=== PATIENT | female | born 1950 | race Caucasian/White ===

== ENCOUNTER → 2024-02-22 11:58 | Outpatient (REF) | payer MEDICARE, OTHER, SELFPAY | LOC: WDC 11:58 | PROVIDERS: ATTENDING PHYSICIAN Obstetrics & Gynecology; FAMILY PHYSICIAN Internal Medicine | DX: Z12.31 Encounter for screening mammogram for malignant neoplasm of breast (principal) | CPT/HCPCS: 77063; 77067 ==

== ENCOUNTER → 2024-04-25 09:13 | Outpatient (REF) | payer MEDICARE, OTHER, SELFPAY | LOC: RAD 09:13 | PROVIDERS: ATTENDING PHYSICIAN Internal Medicine Rheumatology; FAMILY PHYSICIAN Internal Medicine | DX: M81.0 Age-related osteoporosis without current pathological fracture (principal); Z13.820 Encounter for screening for osteoporosis | CPT/HCPCS: 77080 ==

== ENCOUNTER → 2024-07-21 13:00 | Outpatient (REF) | payer MEDICARE, OTHER, SELFPAY | LOC: RAD 13:00 | PROVIDERS: ATTENDING PHYSICIAN Obstetrics & Gynecology; FAMILY PHYSICIAN Internal Medicine | DX: R10.2 Pelvic and perineal pain (principal) | CPT/HCPCS: 76830; 76856 ==

== ENCOUNTER 2024-09-20 06:20 | Day surgery (SDC) | payer MEDICARE, OTHER, SELFPAY | END 2024-09-20 15:09 | disposition home or self-care (01) | LOC: GI 06:20 | PROVIDERS: ATTENDING PHYSICIAN Internal Medicine Gastroenterology | DX: Z12.11 Encounter for screening for malignant neoplasm of colon (principal); K57.30 Diverticulosis of large intestine without perforation or abscess without bleeding; Z86.0101 Personal history of adenomatous and serrated colon polyps | CPT/HCPCS: G0105 ==

== ENCOUNTER 2024-09-27 06:55 | Emergency (ER) | payer MEDICARE, OTHER, SELFPAY ==
[2024-09-27 06:57] VITALS: BP 149/94
[2024-09-27 07:34] VITALS: BP 129/72
[2024-09-27 07:35] VITALS: BMI 26.2
[2024-09-27 08:00] VITALS: BP 127/70
--- NOTE | 2024-09-27 08:56 | ED.GENMED ---
History of Present Illness
General
Chief Complaint: Headache
Source: patient
Exam Limitations: none
Time Seen by Provider: 09/27/24 07:04
Nursing documentation reviewed up to this point in time: agreed with
History of Present Illness
History of Present Illness:
74-year-old female with no reported chronic medical issues presents to the emergency room for evaluation of headaches. Patient reports that she had a fall on Wednesday (5 days ago)�she was apparently sitting on her porch step holding her dog and a dog
went to [place] an animal and pulled her into the railing of the step. She struck her head but did not lose consciousness. She has had some soreness in her neck and headaches since. She went to see her primary doctor initially and was diagnosed
with concussion but told to go to the emergency room for CT if symptoms persist or worsen. She says that over the weekend symptoms have been a bit worse and so she decided to come in for evaluation. She has not had any vomiting. Denies any change
in her vision or speech, focal weakness or numbness in extremities. She denies any other injuries. Her only other complaint is she said she has had a little bit higher than usual blood pressure over the past few days and will occasionally get
palpitations.
Review of Systems
Review of Systems
All Other Systems: ROS reviewed and negative except as documented in HPI and ROS
Respiratory: Denies trouble breathing
Cardiac: Reports palpitations; Denies chest pain
ABD/GI: Denies abdominal pain, nausea or vomiting
Musculoskeletal: Reports neck pain; Denies back pain
Neurological: Reports headache; Denies dizzy, weakness or numbness
Phy Exam
Physical Exam
Physical Exam:
General: Awake, alert, oriented x3; no acute distress
Head: Normocephalic, some bruising on the forehead and minor abrasion
Eyes: Conjunctiva normal, EOMI, pupils equal round and reactive to light bilaterally
Throat: Airway intact, handling secretions
Neck: Trachea midline no midline cervical spine tenderness, good range of motion to [address] without pain, some mild tenderness of the upper trapezius
Lungs: Clear to auscultation bilaterally, no wheezing, rales, rhonchi
Heart: Regular rate and rhythm, no murmurs, gallops, or rubs
Neuro: Cranial nerves intact 2 through 12, speech fluid without dysarthria or aphasia, no limb ataxia, motor and sensory intact, normal Romberg
Extremities: Atraumatic, warm and well-perfused
Scores
Heart Failure Risk
Heart Failure Risk Score: Not Applicable
Heart Score for Chest Pain Patients
STEMI patient?: Not applicable
Withdrawal Assessment of Alcohol
Withdrawal Assessment Completed?: Not applicable
Course
Orders/Labs/Results
Orders:
Orders
09/27/24 07:04
CT Head W/o Iv Contrast Urgent
Comment:
Reason For Exam: headache s/p fall with head strike
09/27/24 07:05
CT Cervical Spine W/o Iv Contr Urgent
Comment:
Reason For Exam: headache s/p fall with head strike
09/27/24 07:13
Electrocardiogram (*1) Urgent
Reason for Study: Palpitations
EKG- Treatment ONCE
Vital Signs
Pulse: 73
Initial and Last Documented VS:
Initial Vital Signs
Temp Pulse Resp BP Pulse Ox
36.9 C 105 18 149/94 99
09/27/24 06:57 09/27/24 06:57 09/27/24 06:57 09/27/24 06:57 09/27/24 06:57
Last Documented Vital Signs
Temp Pulse Resp BP Pulse Ox
36.9 C 105 18 127/70 98
09/27/24 06:57 09/27/24 06:57 09/27/24 06:57 09/27/24 08:00 09/27/24 08:01
MDM/Problems Addressed
Differential Diagnosis Includes:
Concussion, subdural/subarachnoid hemorrhage, tension headache, cervical spine injury
MDM/Problems Addressed:
74-year-old female presents 5 days status post head trauma complaining of continued headache and some soreness in the neck. Vitals and exam as above�she did have some tachycardia and hypertension in triage which normalized by my assessment. CT
head and cervical spine performed here showed no acute abnormalities, age-related degenerative changes. Provided copy of her report for her to follow-up with her primary doctor. She did complain of some higher than usual blood pressure and
occasional palpitations and so we checked an EKG which showed normal sinus rhythm with no ectopy, no acute ischemic changes. Stable for discharge to follow-up with primary care physician�likely diagnosis of concussion. Spoke about return
precautions all questions answered.
Acute Exacerbation and/or Progression of Chronic Illness:
Acutely hypertensive resolved without intervention continue to monitor but no emergent antihypertensives indicate
Acute Exacerbation and/or Progression of Chronic Illness: HTN
*Radiology
Radiology exam reviewed: radiology read reviewed
*Pulse Oximetry
Patient hypoxic: no
*EKG
Interpreted by ED Provider?: Yes
Heart Rate: 73
Rate: normal
Rhythm: sinus
[place]: normal axis
Interval: normal interval
QRS Pattern: normal QRS
Ischemia: no ischemia
*Critical Care Note
Total Time (30-74mins, 75-104mins- exclusive of procedures): Not Applicable
Data Reviewed
Source: patient and spouse
ED Attending Note
-
Portions of this chart may have been created with voice recognition software.� Occasional wrong word or��sound alike� substitutions may have occurred due to the inherent limitations of voice recognition software.
Discharge Plan
Departure
Patient Disposition: Home (Routine Discharge)
Date of Disposition: 09/27/24
Time of Disposition: 08:44
Patient with high blood pressure during this ER visit?: Yes
Discharge Problem:
Concussion
Instructions: Concussion in adults - ED discharge instructions
Referrals:
Gautam Alba MD [Family Provider, Internal Medicine] - Follow up in 5-7 days
Activity Restrictions/Additional Instructions:
Thank you for visiting the Emergency Department at [facility].
1. Please schedule a follow up appointment as directed. Call first thing tomorrow morning to make an appointment.
2. If indicated, please take your medications as instructed and indicated on discharge paperwork.
3. If any of your symptoms do not improve, or persist, or become more severe within 6-12 hours, please return to the emergency department for further care.
4. Please return to the emergency department if you develop a headache, neck pain/stiffness, fever greater than 100.4F, chest pain, shortness of breath, persistent nausea, vomiting, slurred speech, difficulty walking, numbness/tingling, weakness,
signs of infection or any other symptoms that are worrisome to you.
Please call [phone] if you have any questions.
Interventions
Interventions:
*Risk Screen - Suicide Last Done: 09/27/24 06:57
*General Assessment Last Done: 09/27/24 06:57
*Neglect/Abuse Screening Last Done: 09/27/24 06:57
*ED- Fall Risk Assessment Last Done: 09/27/24 07:45
*ED COVID-19 Vaccine History Last Done: 09/27/24 07:45
*Nursing Disposition Last Done: 09/27/24 08:51
ED- Neurological Assessment Last Done: 09/27/24 07:44
Discharge Date and Time
Print Language: [id number]
== END 2024-09-27 09:06 | disposition home or self-care (01) ==
LOC: EMR 06:55
PROVIDERS: EMERGENCY PHYSICIAN Emergency Medicine; FAMILY PHYSICIAN Internal Medicine
DX: S06.0XAA Concussion with loss of consciousness status unknown, initial encounter (principal); W19.XXXA Unspecified fall, initial encounter; I10 Essential (primary) hypertension
CPT/HCPCS: 99284; 70450; 72125; 93005

== ENCOUNTER → 2024-10-07 09:42 | Outpatient (REF) | payer MEDICARE, OTHER, SELFPAY | LOC: PAVMRI 09:42 | PROVIDERS: ATTENDING PHYSICIAN Orthopaedic Surgery; FAMILY PHYSICIAN Internal Medicine | DX: M25.562 Pain in left knee (principal) | CPT/HCPCS: 73721 ==